=== PATIENT | male | born 1970 | race Two or more races ===

== ENCOUNTER 2023-11-10 16:30 | Emergency (ER) | payer OTHER ==
[~2023-11-10] VITALS: Ht 172.7 cm; Wt 104.3 kg
[~2023-11-10 16:30] MED LIST: CEFDINIR300 MG PO; CIPRO100 MG PO; CIPRODEX OTIC7.5 ML OTIC
[2023-11-10] MEDS ORDERED: MELATONIN5 M1 (16:50)
[2023-11-10 23:27] LABS: HEMATOCRIT 46.9 % (39.0-48.0); HEMOGLOBIN 15.9 g/dL (13-16.00); MEAN CELL VOLUME 87.9 fL (80.0-100.00); MEAN CORPUSCULAR HEMOGLOBIN 29.8 pg (27.00-32.0); MEAN CORPUSCULAR HGB CONC 33.9 g/dl (32.0-36.0); PLATELET COUNT 484 K/uL (150-450); RED BLOOD COUNT 5.33 M/uL (4.00-6.00); RED CELL DISTRIBUTION WIDTH 13.2 % (11.5-14.5)
[2023-11-10 23:46] LABS: ALBUMIN 3.8 gm/dL (3.4-5.0); BILIRUBIN TOTAL 0.47 mg/dL (0.3-1.2); CALCIUM 9.9 mg/dL (8.5-10.1); CREATININE SERUM 0.85 mg/dL (0.70-1.30); GFR 94.65; GLOBULINA 4.8 G/DL (2.4-3.5); POTASSIUM 3.67 mEq/L (3.5-5.1); TOTAL PROTEIN 8.6 gm/dL (6.4-8.2)
[2023-11-11 01:45] LABS: PH,URINE 5.5 (5.0-8.0); URINE APPEARANCE Clear; URINE BILIRRUBIN Negative (NEGATIVE); URINE BLOOD Trace; URINE COLOR Dark Yellow; URINE GLUCOSE Negative (NEGATIVE); URINE LEUKOCYTE Negative; URINE NITRATE Negative; URINE PROTEIN 30 (NEGATIVE)
[2023-11-11 01:51] LABS: URINE EPITHELIAL CELLS 13.9 uL (0.0-38.8); URINE RBC 42.8 uL (0.0-20.8); URINE WBC 5.4 uL (0.0-23.2)
[2023-11-11] MEDS ORDERED: hydrOXYzine PAMOATE 50 MG CAPSULE PO STA (02:32)
== END 2023-11-11 02:50 | disposition home or self-care (01) ==
LOC: ER 16:31
PROVIDERS: Emergency Medicine
DX: G47.00 Insomnia, unspecified (principal); J06.9 Acute upper respiratory infection, unspecified; G80.9 Cerebral palsy, unspecified; Z20.822 Contact with and (suspected) exposure to COVID-19; Z88.0 Allergy status to penicillin

== ENCOUNTER 2025-01-01 15:55 | Outpatient (CLI) | payer OTHER ==
[~2025-01-01 15:55] MED LIST changes: +MELATONIN5 M1
== END 2025-01-01 16:01 | disposition home or self-care (01) ==
LOC: RAD 15:55
PROVIDERS: ATTEND Physical Medicine & Rehabilitation Pediatric Rehabilitation Medicine
DX: G80.1 Spastic diplegic cerebral palsy (principal)